=== PATIENT | male | born 1985 | race Caucasian/White ===

== ENCOUNTER 2020-09-01 19:30 | Emergency (ER) | payer OTHER ==
[2020-09-01] MEDS ORDERED: KETOROLAC 60 MG/2 ML VIAL IM STA (19:53)
--- NOTE | 2020-09-01 20:16 | ED Physician Documentation ---
History of Present Illness - Stated complaint Stated Complaint: BACK PX,NUMB LEFT SIDE - Chief complaint Chief Complaint: Back Pain - History obtained from History obtained from: Patient - History of Present Illness Timing: Prior to arrival - Additonal information Additional information: 35-year-old male presents emergency department with chief complaint of acute bilateral low back pain that radiates to both of his legs. He reports that his bilateral thighs feel numb but he has no saddle anesthesia inner thigh numbness or leg weakness. He has no recent falls or trauma. No fevers. He reports a longstanding history of low back pain but has not really had it evaluated since he was in the . He took 400 mg of ibuprofen today without relief of john n. He denies dysuria hematuria. Review of Systems Constitutional: reports: Reviewed and negative Eyes: reports: Reviewed and negative Nose: reports: Reviewed and negative Throat: reports: Reviewed and negative Cardiac: reports: Reviewed and negative Respiratory: reports: Reviewed and negative GI: reports: Reviewed and negative : reports: Reviewed and negative Skin: reports: Reviewed and negative Musculoskeletal: reports: Back pain. denies: Neck pain, Extremity pain, Joint pain, Joint swelling Neurologic: reports: Reviewed and negative PD PAST MEDICAL HISTORY - Past Medical History Past Medical History: No Psych: Anxiety, Post traumatic stress disorder Musculoskeletal: Chronic back pain, Other Other Past Medical History: knee "loose" - Past Surgical History Past Surgical History: No - Present Medications Home Medications: Ambulatory Orders Medication Instructions Recorded Confirmed Ibuprofen [Motrin] 600 mg PO Q6H PRN #30 tab 09/01/20 Methocarbamol [Robaxin-750] 750 mg PO TID PRN #30 tablet 09/01/20 - Allergies Allergies/Adverse Reactions: Allergies Allergy/AdvReac Type Severity Reaction Status Date / Time nickel Allergy Unknown Verified 09/01/20 19:39 - Social History Does the pt smoke?: No Smoking Status: Never smoker Does the pt drink ETOH?: No Does the pt have substance abuse?: No - Immunizations Immunizations are current?: Yes PD ED PE EXPANDED - General General: Alert, No acute distress, Well developed/nourished - Cardiac Cardiac: Regular Rate, Regular Rhythm, Radial strong equal, Cap refill < 2 sec - Respiratory Respiratory: Clear to ausultation dalila. No: Distress, Labored - Abdomen Abdomen: Normal Bowel sounds. No: Tender to palpation - Back Back: Soft tissue tenderness (Mild bilateral lumbar paraspinous tenderness. No swelling or erythema. No midline lumbar tenderness. Reduced forward flexion of the lumbar spine secondary to pain. Normal gait. Motor strength 5 of 5 bilateral lower extremities. 2+ patellar bilaterally.), Limited ROM. No: Vertebral tenderness, Straight leg raise + R, Straight leg raise + L, CVA TTP right, CVA TTP left Results - Vitals Vitals: Vital Signs - 24 hr 09/01/20 19:35 Temperature 36.2 C L Heart Rate 70 Respiratory 18 Rate Blood Pressure 122/86 H O2 Saturation 97 Oxygen O2 Source Room air PD MEDICAL DECISION MAKING - ED course Complexity details: considered differential, d/w patient ED course: 35-year-old male presents the emergency department with 3 days of acute low back pain with radiation to both of his legs. However straight leg exam is negative bilaterally. He had no midline spinous process tenderness. He has no red flags of back pain. He was given 60 mg of Toradol IM with moderate relief of pain here in the ER. I will place this gentleman on NSAID as well as methocarbamol. He does report that both of his outer thighs are numb. He may have a bilateral meralgia paresthetica. I advised that he loosen the belt on his pants. Advised close follow-up with primary care provider. In the long-term he would do well with moderate weight reduction as well as consideration for physical therapy. Emergent return precautions discussed Departure - Departure Disposition: 01 Home, Self Care Clinical Impression: Low back pain Qualifiers: Chronicity: acute Back pain laterality: bilateral Sciatica presence: without sciatica Qualified Code(s): M54.5 - Low back pain Condition: Stable Record reviewed to determine appropriate education?: Yes Instructions: ED Spasm Back No Trauma, ED Back Care Tips Prescriptions: Ibuprofen [Motrin] 600 mg PO Q6H PRN #30 tab PRN Reason: Pain Methocarbamol [Robaxin-750] 750 mg PO TID PRN #30 tablet PRN Reason: Spasms Comments: Raul I would like you to take the ibuprofen 3 times a day with food for the next 3 to 4 days. I have also prescribed methocarbamol, a muscle relaxer. All muscle relaxers can be somewhat sedating so please be careful when driving if taking this medication. I would like you to practice gentle stretching of your low back to help relieve the spasm. In the long-term it is important that you follow-up with your primary care doctor. You may benefit in the long-term from physical therapy as well as a moderate weight loss. To strengthening your core abdominal muscles can relieve the work on the low back. If at any point you develop numbness or tingling in your genital area, cannot control your bowel or bladder function please return immediately to the ER
[2020-09-01 20:27] VITALS: BP 130/86
== END 2020-09-01 20:27 | disposition home or self-care (01) ==
LOC: ED 19:30
DX: M54.5 Low back pain (principal); M79.604 Pain in right leg; M79.605 Pain in left leg; R20.0 Anesthesia of skin
CPT/HCPCS: 96372; 99283; 99284

== ENCOUNTER 2022-06-24 09:55 | Outpatient (CLI) | payer OTHER ==
[2022-06-24 12:59] LABS: BASOPHILS % (AUTO) 0.3 %; EOSINOPHILS # (AUTO) 0.2 10^3/uL (0.0-0.7); EOSINOPHILS % (AUTO) 1.6 %; LYMPHOCYTES # (AUTO) 3.4 10^3/uL (1.5-3.5); MEAN CORPUSCULAR HEMOGLOBIN 29.5 pg (27.0-31.0); MEAN CORPUSCULAR HGB CONC 33.3 g/dL (32.0-36.0); MEAN CORPUSCULAR VOLUME 88.4 fL (80.0-94.0); MEAN PLATELET VOLUME 10.2 fL (7.4-11.4); MONOCYTES # (AUTO) 0.7 10^3/uL (0.0-1.0); NEUTROPHILS # (AUTO) 4.8 10^3/uL (1.5-6.6); NEUTROPHILS % (AUTO) 52.6 %; PLT - PLATELET COUNT 309 10^3/uL (130-450); RED BLOOD COUNT 5.09 10^6/uL (4.70-6.10); RED CELL DISTRIBUTION WIDTH 11.7 % (12.0-15.0); WHITE BLOOD COUNT 9.2 x10^3/uL (4.8-10.8)
[2022-06-24 13:16] LABS: ALBUMIN 4.1 g/dL (3.2-5.5); ALBUMIN/GLOBULIN RATIO 1.2 (1.0-2.2); ALKALINE PHOSPHATASE 62 IU/L (42-121); ALT ALANINE AMINOTRANSFERASE 35 IU/L (10-60); AST ASPARTATE AMINOTRANSFERASE 19 IU/L (10-42); BILIRUBIN,TOTAL 0.4 mg/dL (0.2-1.0); BUN - BLOOD UREA NITROGEN 14 mg/dL (6-20); CALCIUM 9.7 mg/dL (8.5-10.3); CARBON DIOXIDE - CO2 28 mmol/L (21-32); CHLORIDE 103 mmol/L (101-111); CHOL/HDL RATIO 6.6 (<5.0); CHOLESTEROL 269 mg/dL; CREATININE 0.9 mg/dL (0.6-1.2); GFR - MDRD 95 (>89); GLUCOSE 103 mg/dL (70-100); HDL CHOLESTEROL 41 mg/dL; LDL CHOLESTEROL,CALCULATED 183 mg/dL; LDL/HDL RATIO 4.5 (<3.6); POTASSIUM 4.3 mmol/L (3.5-5.0); SODIUM 138 mmol/L (135-145); TOTAL PROTEIN 7.5 g/dL (6.7-8.2); TRIGLYCERIDES 226 mg/dL; VLDL CHOLESTEROL 45 mg/dL
[2022-06-24 13:26] LABS: THYROID STIMULATING HORMONE 0.72 uIU/mL (0.34-5.60)
[2022-06-24 13:27] LABS: ESTIMATED AVERAGE GLUCOSE 114 mg/dL (70-100); HEMOGLOBIN A1c% 5.6 % (4.27-6.07)
== END 2022-06-24 09:56 | disposition home or self-care (01) ==
LOC: LAB.N 09:55
PROVIDERS: ATTEND Nurse Practitioner Family
DX: Z00.01 Encounter for general adult medical examination with abnormal findings (principal); E66.9 Obesity, unspecified
CPT/HCPCS: 36415; 80053; 80061; 83036; 83721; 84443; 85025